=== PATIENT | male | born 1965 | race Two or more races ===

== ENCOUNTER 2021-11-26 10:11 | Inpatient (IN) | payer OTHER ==
[~2021-11-26] VITALS: Ht 170.2 cm; Wt 98.5 kg
[2021-11-26 11:21] LABS: Basophils # (auto) 0.1 10 ^3/uL (0-0.2); Basophils % (auto) 1.3 % (0.0-2.0); Eosinophils # (auto) 0.1 10 ^3/uL (0-0.8); Eosinophils % (auto) 1.2 % (0.0-7.0); Hematocrit 48.2 % (41.0-53.0); Hemoglobin 16.5 g/dL (13.5-17.5); Lymphocytes % (auto) 31.2 % (10.0-50.0); Mean Corpuscular Hemoglobin 30.3 pg (28.0-32.0); Mean Corpuscular Hgb Conc. 34.3 g/dL (32.0-36.0); Mean Corpuscular Volume 88.3 fL (80.0-100.0); Monocytes # (auto) 0.3 10 ^3/uL (0-1.3); Monocytes % (auto) 4.6 % (0.0-12.0); Neutrophils # (auto) 3.9 10 ^3/uL (1.6-8.6); Neutrophils % (auto) 61.7 % (37.0-80.0); Nucleated Red Blood Cells % 0.1 %; Red Blood Cells 5.46 10^6/uL (4.5-5.90); Red Cell Distribution Width 14.3 % (11.8-14.3); White Blood Cell 6.4 10^3/uL (4.4-10.8)
[2021-11-26 11:58] LABS: Urine Bacteria NONE SEEN /hpf (None Seen); Urine Blood Negative /uL (Negative); Urine Specific Gravity 1.011 (1.001-1.035); Urine WBC <1 /hpf (0 - 3)
[2021-11-26 12:01] LABS: Albumin 4.6 g/dL (3.4-5.0); Calcium 9.2 mg/dL (8.5-10.1); Potassium 3.8 mmol/L (3.5-5.1)
[2021-11-26 12:06] LABS: BUN/Creatinine Ratio 15.6; Bilirubin, Total 1.3 mg/dL (0.2-1.0); Total Protein 8.9 g/dL (6.4-8.2)
[2021-11-26] MEDS ORDERED: MORPHINE SULFATE INJ 2 MG/ml SYRG IV PRN (16:15)
[2021-11-26] MEDS ORDERED: NITROGLYCERIN 0.4 MG SL TAB SL PRN (16:15)
[2021-11-26] MEDS ORDERED: HYDROmorphone HCL 2 MG/ML VL/or syr IV ONE (18:00)
[2021-11-26 22:22] VITALS: BP 117/72
[2021-11-27 05:00] VITALS: BP 110/77
[2021-11-27 08:15] VITALS: BP 125/74
[2021-11-27 09:00] VITALS: BP 125/74
[2021-11-27 13:00] VITALS: BP 120/84
[2021-11-27 17:00] VITALS: BP 146/86
[2021-11-27] MEDS ORDERED: HYDROcodone-ACET 5/325MG TAB PO PRN (21:15)
[2021-11-27] MEDS ORDERED: MILK OF MAGNESIA 30ML SUSP PO PRN (21:15)
[2021-11-27] MEDS ORDERED: ONDANSETRON HCL 4 MG/2 ML VIAL IV PRN (21:15)
[2021-11-27] MEDS: HYDROmorphone HCL 2 MG/ML VL/or syr IV PRN (22:24)
[2021-11-28 05:15] VITALS: BP 140/83
[2021-11-28 07:56] LABS: Basophils # (auto) 0.1 10 ^3/uL (0-0.2); Eosinophils # (auto) 0.2 10 ^3/uL (0-0.8); Hematocrit 48.4 % (41.0-53.0); Hemoglobin 16.3 g/dL (13.5-17.5); Lymphocytes # (auto) 1.6 10 ^3/uL (0.4-5.4); Lymphocytes % (auto) 29.3 % (10.0-50.0); Mean Corpuscular Hgb Conc. 33.7 g/dL (32.0-36.0); Mean Corpuscular Volume 89.1 fL (80.0-100.0); Monocytes # (auto) 0.5 10 ^3/uL (0-1.3); Monocytes % (auto) 9.5 % (0.0-12.0); Neutrophils # (auto) 3.1 10 ^3/uL (1.6-8.6); Neutrophils % (auto) 57.2 % (37.0-80.0); Nucleated Red Blood Cells % 0.2 %; Red Blood Cells 5.43 10^6/uL (4.5-5.90); Red Cell Distribution Width 14.3 % (11.8-14.3); White Blood Cell 5.4 10^3/uL (4.4-10.8)
[2021-11-28 08:04] LABS: BUN/Creatinine Ratio 17.9; Potassium 3.8 mmol/L (3.5-5.1)
[2021-11-28] MEDS: PANTOPRAZOLE 40 MG/10 ML VIAL INJ IV SCH (08:39)
[2021-11-28] MEDS: ENOXAPARIN SOD 40 MG/0.4 ML SYRINGE SC SCH (08:39)
[2021-11-28] MEDS: HYDROmorphone HCL 2 MG/ML VL/or syr IV PRN ×3 (08:40→20:10)
[2021-11-28 09:00] VITALS: BP 118/72
[2021-11-28 13:00] VITALS: BP_SYST 132; BP_SYST 138; BP_DIAS 80; BP_DIAS 87
[2021-11-28 15:35] LABS: Albumin 4.2 g/dL (3.4-5.0); BUN/Creatinine Ratio 16.2; Calcium 8.9 mg/dL (8.5-10.1); INR 0.99 (0.9-1.15); Partial Thromboplastin Time 27.2 sec (23.6-33.0); Potassium 3.8 mmol/L (3.5-5.1)
[2021-11-28 15:37] LABS: Bilirubin, Total 1.4 mg/dL (0.2-1.0)
[2021-11-28 17:00] VITALS: BP 132/83
[2021-11-28 22:00] VITALS: BP 138/90
[2021-11-29] MEDS: HYDROmorphone HCL 2 MG/ML VL/or syr IV PRN ×4 (00:01→18:10)
[2021-11-29 05:00] VITALS: BP 124/73
[2021-11-29 08:00] VITALS: BP 122/80
[2021-11-29 08:32] VITALS: BP 122/80
[2021-11-29] MEDS: ENOXAPARIN SOD 40 MG/0.4 ML SYRINGE SC SCH (10:23)
[2021-11-29] MEDS: PANTOPRAZOLE 40 MG/10 ML VIAL INJ IV SCH (10:23)
[2021-11-29 13:08] VITALS: BP 118/82
[2021-11-29] MEDS ORDERED: ceFAZolin 1GM/50ML 100 ML IV ONE (14:31)
[2021-11-29] MEDS ORDERED: LIDOCAINE 1%HCL (LOCAL ANESTH) 10 ML MDV ONE (14:35)
[2021-11-29] MEDS ORDERED: BUPIVACAINE HCL 50 ML ONE (14:36)
[2021-11-29] MEDS ORDERED: MIDAZOLAM HCL 2MG/2ML 2ml VIAL (1mg/ml) ONE (15:07)
[2021-11-29] MEDS ORDERED: ROCURONIUM 10MG/ML 10ML VIAL IV ONE (15:07)
[2021-11-29] MEDS ORDERED: fentaNYL CITRATE 100 MCG/2 ML VL ONE (15:07)
[2021-11-29] MEDS ORDERED: LIDOCAINE 2% (LOCAL ANESTH.) PF 5ml SDV ONE (15:08)
[2021-11-29] MEDS ORDERED: PROPOFOL 10 MG/ML 20 ML IV ONE (15:08)
[2021-11-29] MEDS ORDERED: ONDANSETRON HCL 4 MG/2 ML VIAL ONE (15:08)
[2021-11-29] MEDS ORDERED: ONDANSETRON HCL 4 MG/2 ML VIAL IV PRN (16:30)
[2021-11-29] MEDS ORDERED: HYDROmorphone HCL 2 MG/ML VL/or syr IV PRN ×2 (16:30→17:15)
[2021-11-29] MEDS ORDERED: GLYCOPYRROLATE 0.2 MG/ML 1ML VIAL ONE (17:43)
[2021-11-29] MEDS ORDERED: NEOSTIGMINE 1 MG/ML INJ (10mg/10ML VIAL) ONE (17:43)
[2021-11-29] MEDS: HYDROcodone-ACET 5/325MG TAB PO PRN (20:10)
[2021-11-29 22:00] VITALS: BP 104/70
[2021-11-30 05:00] VITALS: BP_SYST 113; BP_SYST 99; BP_DIAS 62; BP_DIAS 73
[2021-11-30] MEDS: HYDROcodone-ACET 5/325MG TAB PO PRN ×3 (05:32→15:43)
[2021-11-30] MEDS: SODIUM CHLORIDE 0.9% 1,000 ML IV SCH ×3 (06:32→22:40)
[2021-11-30 08:00] VITALS: BP 99/62
[2021-11-30] MEDS: ENOXAPARIN SOD 40 MG/0.4 ML SYRINGE SC SCH (09:45)
[2021-11-30] MEDS: PANTOPRAZOLE 40 MG TAB PO SCH (09:45)
[2021-11-30 13:00] VITALS: BP 115/70
[2021-11-30 16:41] VITALS: BP 116/78
[2021-11-30 20:00] VITALS: BP 99/62
[2021-11-30 22:00] VITALS: BP 104/67
[2021-12-01 05:00] VITALS: BP 112/70
[2021-12-01] MEDS: SODIUM CHLORIDE 0.9% 1,000 ML IV SCH (06:30)
[2021-12-01 08:00] VITALS: BP 112/77
[2021-12-01 09:00] VITALS: BP 98/51
[2021-12-01] MEDS: ENOXAPARIN SOD 40 MG/0.4 ML SYRINGE SC SCH (09:30)
[2021-12-01] MEDS: PANTOPRAZOLE 40 MG TAB PO SCH (09:30)
[2021-12-01] MEDS: HYDROcodone-ACET 5/325MG TAB PO PRN (09:31)
== END 2021-12-01 12:48 | disposition home or self-care (01) | DRG 352 ==
LOC: EEVIPCON 10:11 → ER 10:11 → WEST WING 16:12 → ER 21:06
PROVIDERS: ADMIT Specialist; ATTEND Internal Medicine
PROC: 0YU50JZ Supplement Right Inguinal Region with Synthetic Substitute, Open Approach (ICD-10-PCS; principal; 2021-11-26)
PROC: 0DBU0ZZ Excision of Omentum, Open Approach (ICD-10-PCS; 2021-11-26)
DX: K40.30 Unilateral inguinal hernia, with obstruction, without gangrene, not specified as recurrent (principal); N50.89 Other specified disorders of the male genital organs; R33.9 Retention of urine, unspecified; E66.01 Morbid (severe) obesity due to excess calories; F17.210 Nicotine dependence, cigarettes, uncomplicated; Z20.822 Contact with and (suspected) exposure to COVID-19; Z68.32 Body mass index [BMI] 32.0-32.9, adult; K75.9 Inflammatory liver disease, unspecified; K76.0 Fatty (change of) liver, not elsewhere classified
CPT/HCPCS: 36415; 74018; 74176; 76870; 80048; 80053; 81001; 82150; 83690; 85025; 85610; 85730; 93005; 93306; 96374; C9113; G0378; J0690; J2001; J2250; J2405; J2704; J3490